=== PATIENT | male | born 1935 | race Caucasian/White ===

== ENCOUNTER 2016-12-12 12:08 | Day surgery (SDC) | payer MEDICARE ==
[~2016-12-12] VITALS: Ht 182.9 cm; Wt 92.5 kg
[~2016-12-12 12:08] MED LIST: ATOR1TAB19 PO; HYDR12.55 PO; INDA125TA PO; LANS30CA PO
[2016-12-12] MEDS ORDERED: LR 1,000 ML IV SCH ×2 (12:15→17:45)
[2016-12-12] MEDS ORDERED: D5W/0.9% SODIUM CHLORIDE 1,000 ML IV SCH (12:30)
[2016-12-12] MEDS ORDERED: ISOVUE-300 61% 50ML VIAL (Q9967) As Ordered ONE (15:02)
[2016-12-12] MEDS ORDERED: LIDOCAINE 1% SDV INJ 30 ML VIAL As Ordered ONE (15:02)
[2016-12-12] MEDS ORDERED: VANCOMYCIN 1000 MG/20 ML VIAL (J3370) As Ordered ONE (15:03)
[2016-12-12] MEDS ORDERED: fentaNYL 100 MCG/2 ML INJECTION (J3010) As Ordered ONE (15:26)
[2016-12-12] MEDS ORDERED: MIDAZOLAM INJ 2 MG/2 ML VIAL (J2250) As Ordered ONE (15:26)
[2016-12-12] MEDS ORDERED: PROPOFOL 200 MG/20 ML VIAL As Ordered ONE (15:27)
[2016-12-12] MEDS ORDERED: LIDOCAINE 2% INJ 100 MG/5 ML SDV (FOR ANES.) As Ordered ONE (15:27)
[2016-12-12] MEDS ORDERED: ONDANSETRON 4MG/2ML VIAL (J2405) As Ordered ONE (15:27)
--- NOTE | 2016-12-12 17:40 | RO ---
DATE OF PROCEDURE: 12/12/2016 PREOPERATIVE DIAGNOSIS: Syncope associated with right bundle branch block. POSTOPERATIVE DIAGNOSIS: Syncope associated with right bundle branch block. FINDINGS: Syncope associated with right bundle branch block. PROCEDURE PERFORMED: Implantation of a permanent dual-chamber pacemaker ([employer]). SURGEON: Naldo Pedraza MD DENTAL TECHNICIAN: None. ANESTHESIA: Lidocaine 1% local/monitored anesthetic care. SPECIMENS: None. ESTIMATED BLOOD LOSS: Less than 25 mL. No blood products replaced. No drains. No complications. DESCRIPTION OF PROCEDURE: The patient was prepped and draped over the left pectoral region. 3M Ioban was applied. Lidocaine 1% was used for local anesthetic. A PEAK PlasmaBlade was used during the procedure. A left subclavian venogram was injected twice for help in locating the left subclavian vein extrathoracic portion, using a micropuncture needle percutaneously in real time with fluoroscopy. This consisted of injection of 15 mL total volume times two of a mixture containing one-quarter parts normal saline and three-quarter parts contrast. This contrast was injected via a vein in the left antecubital region. The guidewire was then exchanged for the guidewires that came with one of the 8[place] sheaths. Next, an incision was made with the PlasmaBlade through the skin, approximately 2-1/2 to 3 inches in length, 1 cm below the skin entry site of the guidewire. The PEAK PlasmaBlade was used to get through the fatty layer and the fibrous Tania's fascia. The prepectoral fascia was then from the Tania's fascia using blunt dissection using two fingers to form the pacemaker pocket in a caudal direction. Next, the guidewire was pulled through the skin into the pacemaker incision site. Next, a second micropuncture needle was used to obtain a separate venous access a bit more lateral than the first guidewire under fluoroscopic guidance using the first guidewire as a guide. This was then guidewire exchanged for the guidewire that came with the other 8-[place] sheath. Next, an 8-[place] sheath with introducer was placed over the more lateral of the guidewires and this sheath was used for vein access for the ventricle lead. The ventricle lead was placed in two separate positions. The second position near the right ventricle apex was found to be satisfactory and was secured with a total of 10 turns. No diaphragm pacing could be palpated on either side of the diaphragm with 10 volts high output pacing. Next, the sheath was removed, and the ventricle lead was secured to the pectoral muscle using two individual sutures consisting of #0 Ethibond. Next, the other 8-[place] sheath was placed over the more medial of the guidewires and used for vein access for the atrial lead. The right atrial lead was placed into the right atrial appendage position where it was secured with a total of 10 turns. This position was found to be electrically and anatomically satisfactory. The sheath was broken apart and removed. The atrial lead was then secured to the pectoral muscle using the supplied tie-down sleeve using two individual sutures consisting of #0 Ethibond. Next, another #0 Ethibond suture was placed to the pectoral muscle to serve as the tie-down for the pacemaker pulse generator. The terminal pins of the ventricle and atrial leads were placed into their respective ports in the header of the pacemaker pulse generator and each one was secured by tightening the set screws with the hex screwdriver. The excess lead material was then coiled underneath the pacemaker pulse generator and placed along with the pacemaker pulse generator into the pacemaker pocket with the excess lead material below and pacemaker pulse generator above. The pacemaker pulse generator was secured to the pectoral muscle with the previously placed #0 Ethibond suture to secure it to the pectoral muscle. Next, the deep layer was closed using individual sutures consisting of #2-0 Vicryl. Additional #2-0 Vicryl sutures were used to help approximate the more superficial layer. Next, the skin was closed using subcuticular stitch with #4-0 Biosyn suture material with the beginning and ending knots tied deep with the last knot being an [place] knot. Next, two layers of Dermabond was applied. The patient tolerated the procedure well without any immediate complications. The pacemaker pulse generator implanted was a [employer] SimpleLegalurity MRI with model #IU8470. The serial number was #[id number]. The right atrial lead implanted was a [employer] model #[id number] 52 cm with serial #[id number]. Testing in the operating room with the pulse analyzer for the right atrial lead showed capture threshold of 0.8 volts at 0.4 ms with P wave amplitude of 3.0 mV at a measured impedance of 482 ohms. Device base testing at the end of the operation showed a capture threshold of 0.75 volts at 0.4 ms with lead impedance of 490 ohms and P wave amplitude of 2.6 mV. The right ventricle lead implanted was a [employer] Tendril MRI model #[id number] 58 cm with serial #[id number]. Pulse analyzer testing for the ventricle lead showed capture threshold of 0.5 volts at 0.4 ms with R wave amplitude of 7.3 mV and lead impedance of 710 ohms. Device base testing at the end of the case showed ventricle lead capture threshold of 0.625 volts at 0.4 ms with lead impedance of 660 ohms and R wave amplitude of 7.3 mV.
[2016-12-12] MEDS ORDERED: ACETAMINOPHEN TAB 650MG DOSE (2X325MG) PO PRN (17:45)
[2016-12-12] MEDS ORDERED: fentaNYL 100 MCG/2 ML INJECTION (J3010) IV PRN (17:45)
[2016-12-12 18:00] VITALS: BP 158/92
--- NOTE | 2016-12-12 18:28 | REP ---
Partial chest x-ray: Single view: History: Syncope. Fluoroscopy time is reported 7 minutes 13 seconds. Findings: A single fluoroscopically obtained last minute hold spot radiograph documents lead position status post cardiac pacemaker insertion. Signed by George Mendoza MD 12/13/2016 12:25 P
[2016-12-12 18:30] VITALS: BP 156/78
--- NOTE | 2016-12-12 18:36 | REP ---
Portable chest x-ray: Single view: History: Postop. No comparison x-rays. Findings: A bipolar pacemaker is seen in the right heart via the left side. There is no evidence of pneumothorax. There is some pleural thickening along the right lateral chest wall. No pleural effusion is seen. The aorta is calcific and tortuous. Heart is mildly prominent. Impression: Pacemaker in place. No complication identified. Signed by George Mendoza MD 12/13/2016 12:25 P
[2016-12-12 20:00] VITALS: BP 168/75
[2016-12-12] MEDS: PANTOPRAZOLE 40MG TAB (PROTONIX) PO SCH (20:11)
[2016-12-12] MEDS: INDAPAMIDE 1.25MG TABLET PO SCH (20:51)
[2016-12-12] MEDS: ASCORBIC ACID 250 MG TAB PO SCH (20:52)
[2016-12-12] MEDS: ATORVASTATIN 10 MG TAB PO SCH (20:52)
[2016-12-12 21:00] VITALS: BP 169/81
[2016-12-12 22:00] VITALS: BP 127/72
[2016-12-12 23:59] VITALS: BP 136/76
[2016-12-13 04:00] VITALS: BP 151/81
[2016-12-13 07:45] VITALS: BP 141/76
[2016-12-13] MEDS: PANTOPRAZOLE 40MG TAB (PROTONIX) PO SCH (09:13)
[2016-12-13] MEDS: INDAPAMIDE 1.25MG TABLET PO SCH (09:13)
[2016-12-13] MEDS: ATORVASTATIN 10 MG TAB PO SCH (09:13)
[2016-12-13] MEDS: ASCORBIC ACID 250 MG TAB PO SCH (09:13)
--- NOTE | 2016-12-13 09:33 | REP ---
Followup pacemaker. COMPARISON: 12/12/2016 at 5:14 p.m. Dual-chamber bipolar pacemaker and leads unchanged. Lung bullock unchanged. No new abnormal opacity or pleural effusion. No pneumothorax. Cardiomediastinal silhouette stable. Thoracic aortic tortuosity status quo. No change in the appearance of the osseus structures. IMPRESSION: No significant change other than technique and no evidence of acute cardiopulmonary disease. Signed by Lavelle Godwin DO 12/13/2016 10:05 A
[2016-12-13 12:00] VITALS: BP 139/70
--- NOTE | 2016-12-13 14:38 | ECGEPIP ---
Stationary ECG Study [facility] Test Date: 2016-12-12 Pat Name: NATHALIA MARTINEZ Department: Room: - Gender: M Internal Medicine Nurse Practitioner: HALEY : 1935 Requested By: Naldo Pedraza Order Number: [id number] Reading MD: Fatou Goins Measurements Intervals [place] Rate: 60 P: 252 [place]: 224 QRS: -32 QRSD: 150 T: 1 QT: 452 QTc: 452 Interpretive Statements ELECTRONIC ATRIAL PACEMAKER IST DEGREE BLOCK LEFT AXIS DEVIATION RIGHT BUNDLE BRANCH BLOCK NO PRIOR Electronically Signed On 12-13-2016 14:38:34 EST by Fatou Goins
--- NOTE | 2016-12-13 15:41 | IPN ---
DATE: 12/13/2016 CARDIOLOGY PROGRESS NOTE SUBJECTIVE: Has experienced only minor incisional discomfort overnight. He has been up and around his room to the bathroom several times without lightheadedness or other cardiovascular complaint. OBJECTIVE: Pleasant elderly male of medium body build, laying comfortably with the head of bed elevated 30 degrees. Heart rate 61 beats per minute, blood pressure 139/70, respiratory rate 18, oxygen saturation 99% on room air. Afebrile. His weight today was stable at 204 pounds. BMI was 27.7. No pallor or cyanosis. Normal oral moisture. Trachea midline. Neck veins were not elevated. Normal chest configuration and chest expansion. Healing left subclavian pacemaker incision without erythema, swelling or discharge. Chest x-ray: PA and left lateral study reviewed independently this morning shows normal appearing heart size. Slightly tortuous unfolded thoracic aorta. Normal pulmonary vasculature. Clear lung bullock with no infiltrate or pleural effusion. No pneumothorax. Stable pacing lead position in RV apex and high right atrial appendage. Pulse generator left subclavian region. EKG phototypesetting equipment monitor: This has shown appropriate intermittent atrial sensing and pacing with spontaneous AV conduction and underlying right bundle branch block. Complete pacemaker interrogation: [employer] - Assurity MRI model #2272. Excellent intracardiac electrograms with pacing with atrial signal 3.2 mV, ventricular single 6.7 mV, atrial pacing threshold was less than 0.25 volts and 0.4 ms and ventricular pacing threshold 0.5 volts at 0.4 ms. At this point he has been intermittently atrially pacing but virtually consistently sensing in the ventricle. In light of his superb atrial pacing thresholds his atrial amplitude was decreased to 1.5 volts, auto capture function was already activated in the ventricle but did not work in the atrial channel. IMPRESSION/PLAN: 1. Syncopal spell: Fortunately he has been free of further dizziness or fall. His episode is believed to be due to a paroxysmal bradyarrhythmia in light of his underlying conduction tissue disease. 2. Abnormal EKG: Had first-degree AV block, leftward axis and right bundle branch block, so as mentioned above his syncopal spell was believed to be due to paroxysmal high-grade AV block. QRS complexes showed no primary repolarization change. 3. Dual-chamber pacemaker in situ: His incision appears to be healing well. Chest x-ray confirms stable lead position with no pneumothorax. environmental monitoring technician and EKG show appropriate device function with intermittent atrial pacing but essentially spontaneous AV conduction with first-degree AV block. Complete interrogation confirmed excellent intracardiac electrograms and pacing thresholds. We will plan on letting him go home at this time and my office will contact him on Thursday morning with an appointment for a wound check in 7-10 days. He will resume his customary no added salt, low fat, low cholesterol diet. Activity will be as tolerated except for light activity with his left arm for the next week and to avoid getting his incision wet for this similar period time. Should he notice any abnormal erythema, swelling or discharge, we have encouraged him to contact our office promptly. Medications will continue to be atorvastatin 10 mg nightly, indapamide 1.25 mg daily, and Protonix 30 mg daily.
== END 2016-12-13 15:54 | disposition home or self-care (01) ==
LOC: M SDC 12:08 → M PCU 17:50 → UNDOADMIN 17:50 → M SDC 17:51 → M PCU 17:51 → M SDC 12-13 15:54 → UNDODISIN 12-13 15:54
PROVIDERS: ATTEND Internal Medicine Cardiovascular Disease
DX: I44.2 Atrioventricular block, complete (principal); I45.10 Unspecified right bundle-branch block; R55 Syncope and collapse; I50.9 Heart failure, unspecified; I10 Essential (primary) hypertension; Z79.899 Other long term (current) drug therapy; K21.9 Gastro-esophageal reflux disease without esophagitis; E78.5 Hyperlipidemia, unspecified
CPT/HCPCS: 33208; 71010; 71020; 76000; 93005; C1785; C1894; C1898; J0690; J2250; J2405; J3010; Q9967

== ENCOUNTER → 2017-12-10 | Outpatient (REF) | payer MEDICARE | LOC: M LAB REF 15:45 | DX: L08.9 Local infection of the skin and subcutaneous tissue, unspecified (principal) | CPT/HCPCS: 87070; 87076 ==

== ENCOUNTER → 2018-01-13 | Outpatient (REF) | payer MEDICARE ==
[2018-01-13 19:13] LABS: APPEARANCE, URINE HAZY (CLEAR); BACTERIA, URINE AUTO NEGATIVE (NEGATIVE); BILIRUBIN, URINE AUTO NEGATIVE (NEGATIVE); BLOOD, URINE BLOOD 1+ (NEGATIVE); COLOR, URINE YELLOW (YELLOW); GLUCOSE, URINE (UA) AUTO NEGATIVE (NEGATIVE); KETONE, URINE AUTO NEGATIVE (NEGATIVE); LEUKOCYTE ESTERASE, URINE AUTO TRACE (NEGATIVE); MUCUS, URINE SMALL (NEGATIVE); NITRITE, URINE AUTO NEGATIVE (NEGATIVE); PROTEIN, URINE AUTO NEGATIVE (NEGATIVE); RBC, URINE AUTO 3 /HPF (0-3); SPECIFIC GRAVITY URINE AUTO 1.021 (1.002-1.035); SQUAMOUS EPITHELIAL CELL UR AU 1 /HPF (0-6); UROBILINOGEN, URINE AUTO 0.2 mg/dL (0.0-2.0); WBC, URINE AUTO 1 /HPF (0-3)
== END ==
LOC: M SMT 17:09
DX: R97.20 Elevated prostate specific antigen [PSA] (principal); Z79.899 Other long term (current) drug therapy
CPT/HCPCS: 81001

== ENCOUNTER → 2020-07-16 | Outpatient (REF) | payer MEDICARE ==
[2020-07-16 12:46] LABS: BASO % 0.1 % (0.0-1.0); HEMATOCRIT 37.8 % (42.0-52.0); LYMPH # 0.8 10^3/uL (1.5-5.0); LYMPH % 6.2 % (24.0-44.0); MEAN CORPUSCULAR HEMOGLOBIN 31.6 pg (27.0-33.0); MEAN CORPUSCULAR HGB CONC 31.7 g/dl (32.0-36.5); MEAN CORPUSCULAR VOLUME 99.5 fl (80.0-96.0); MONO # 0.8 10^3/uL (0.0-0.8); MONO % 6.5 % (0.0-5.0); NEUTROPHILS # 10.8 10^3/uL (1.5-8.5); NEUTROPHILS % 86.1 % (36.0-66.0); PLATELET COUNT, AUTOMATED 330 10^3/uL (150-450); WHITE BLOOD COUNT 12.5 10^3/uL (4.0-10.0)
[2020-07-16 13:08] LABS: ALBUMIN 3.4 GM/DL (3.2-5.2); ALT/SGPT 43 U/L (12-78); BILIRUBIN,TOTAL 0.6 MG/DL (0.2-1.0); BLOOD UREA NITROGEN 32 MG/DL (7-18); C REACTIVE PROTEIN QUANTITATIV 0.93 MG/DL (0.00-0.30); CALCIUM LEVEL 9.2 MG/DL (8.8-10.2); CARBON DIOXIDE LEVEL 30 MEQ/L (21-32); CHLORIDE LEVEL 101 MEQ/L (98-107); CPK CREATINE PHOSPHOKINASE 55 U/L (39-308); CREATININE FOR GFR 1.34 MG/DL (0.70-1.30); GLOMERULAR FILTRATION RATE 53.9 (>35); GLUCOSE, FASTING 97 MG/DL (70-100); RHEUMATOID FACTOR QUANT < 10.0 IU/ML (<15.0); SODIUM LEVEL 137 MEQ/L (136-145); TOTAL PROTEIN 6.9 GM/DL (6.4-8.2)
[2020-07-16 14:06] LABS: ERYTHROCYTE SEDIMENTATION RATE 39 mm/hr (0-20)
== END ==
LOC: M SFHCRHEU 09:47
PROVIDERS: ATTEND Internal Medicine
DX: M35.3 Polymyalgia rheumatica (principal)
CPT/HCPCS: 36415; 80053; 82550; 85025; 85652; 86140; 86200; 86431; G0463